=== PATIENT | female | born 1985 | race African-American/Black ===

== ENCOUNTER 2018-10-25 16:17 | Emergency (ER) | payer MEDICAID, OTHER ==
[~2018-10-25] VITALS: Ht 157.5 cm; Wt 49.9 kg
--- NOTE | 2018-10-25 16:20 | NUR ---
Pt arrival to ED 5 ambulatory from car. Pt reporting "Feeling funny in head, last night arms and legs just tingled also." Pt reports injuring occured with falling backwards onto concrete and "bouncing up on concrete then falling back again." Pt is vague and slow in giving history, pt reports she didn't feel like coming in last night. Pt reports as day goes on, not feeling improved.
--- OUTSIDE RECORDS SUMMARY | 2018-10-25 16:23 | XMS REPORT | Continuity of Care Document ---
Author Organization Unknown Address Unknown Phone Unavailable Allergies There is no data. Medications There is no data. Problems There is no data. Procedures There is no data. Results There is no data. Encounters ACCT No. Visit Date/Time Discharge Status Pt. Type Provider Facility Loc./Unit Complaint [id number] 09/13/2018 14:00:00 09/13/2018 23:59:59 CLS Outpatient MARK CHRISTENSEN APRN [facility]
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
--- NOTE | 2018-10-25 17:02 | Diagnostic Imaging Report ---
PROCEDURE: CT head and CT cervical spine without contrast. TECHNIQUE: Multiple contiguous axial images were obtained through the brain and cervical spine without the use of intravenous contrast. Sagittal and coronal reformations through the cervical spine were then performed. Auto Exposure Controls were utilized during the CT exam to meet ALARA standards for radiation dose reduction. INDICATION: Fall. FINDINGS: No comparison available. CT head: The del castillo-white matter differentiation is normal. There is no intracranial hemorrhage. No intra or extra-axial fluid collections. Ventricles are normal in size. There is a cavum septum pellucidum. Basilar cisterns are patent. Orbits are normal. There are no suspicious osseous lesions or fractures. Paranasal sinuses are normal. Cervical spine CT: The alignment of the cervical spine is normal. Craniocervical junction is normal. Facet joints are normal. Vertebral body heights are normal. No fracture is seen. There is some motion artifact at the cervicothoracic junction. No soft tissue abnormality is seen. Superior thorax appears normal. IMPRESSION: 1. No acute intracranial abnormality. 2. No fracture of the cervical spine. Dictated by: Dictated on workstation # [id number]
[2018-10-25] MEDS ORDERED: KETOROLAC 30 MG/ML VIAL ONE (17:08)
[2018-10-25] MEDS ORDERED: KETOROLAC 30 MG/ML VIAL IM ONE (17:15)
[2018-10-25] MEDS ORDERED: NAPR-1071 PO (17:16)
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
--- NOTE | 2018-10-25 17:24 | NUR ---
Pt given IM Toradol 30 mg L Ventrogluteal after nurse having just been told to give it in right side. Pt continues to repeat this same info to RN about nature of her injury. Dr Wise notified. Dr Wise states the patient can and should report to the PD and they can speak with her outside of ER setting as he has prepared her discharge already.
[2018-10-25 17:30] VITALS: BP 115/85
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
== END 2018-10-25 17:30 | disposition home or self-care (01) ==
LOC: ER FS 16:19
DX: S06.0X0A Concussion without loss of consciousness, initial encounter (principal); S13.9XXA Sprain of joints and ligaments of unspecified parts of neck, initial encounter; W18.39XA Other fall on same level, initial encounter; W22.8XXA Striking against or struck by other objects, initial encounter
CPT/HCPCS: 70450; 72125

== ENCOUNTER 2018-11-04 15:37 | Emergency (ER) | payer SELFPAY ==
[~2018-11-04] VITALS: Ht 157.5 cm; Wt 49.9 kg
[~2018-11-04 15:37] MED LIST: NAPR-1071 PO
[2018-11-04] MEDS ORDERED: KETOROLAC 60 MG/2 ML VIAL IM STA (18:06)
[2018-11-04] MEDS ORDERED: methylPREDNISolone 80 MG/ML (DEPO MEDROL) VIAL IM STA (18:06)
[2018-11-04] MEDS ORDERED: diphenhydrAMINE 50 MG/ML INJ (BENADRYL) IM STA (18:06)
[2018-11-04] MEDS ORDERED: BACL10TA PO (18:10)
--- NOTE | 2018-11-04 18:11 | ED Neck-Back Pain/Injury ---
General Chief Complaint: Head/Cervical Problems Stated Complaint: HEAD INJ ISSUES Nursing Triage Note: Patient c/o neck pain shooting into her shoulders. Patient states she doesn't know when it began but it has been happening all day long. She reports that she was recently seen in the ED for a head injury and has had problems since then. Nursing Sepsis Screen: No Definite Risk Source of Information: Patient History of Present Illness Date Seen by Provider: Nov 04, 2018 Time Seen by Provider: 17:48 Initial Comments 33-year-old female presenting to the emergency department with complaints of continued headache and neck pain. She had been evaluated on October 25 for similar symptoms. She had CT scan of her head and cervical spine at that time that were negative for any acute fracture or intracranial process. She was referred to the clinic and has followed up with JESSICA Nunez. She was to go see Caridad today because of increased neck and shoulder pain causing worsening headache and dizziness. However pain was not in the office and will return until Thursday. Due to this she came to the emergency department due to his increased neck and shoulder pain causing severe headaches and dizziness. She is out of her cyclobenzaprine or Flexeril and felt like the muscle relaxer was not helping anyway. She continues to take naproxen but feels that it may not be helping her either. She was concerned about sharp stabbing pains in her upper neck and shoulders. She has no numbness or tingling in her arms or legs. She denies any vision changes. She does get dizzy at times. She feels like she is having difficulty trying to concentrate. Allergies and Home Medications Allergies Coded Allergies: No Known Drug Allergies (Unverified , 10/25/18) Home Medications Baclofen 10 Mg Tablet, 10 MG PO TID PRN for MUSCLE SPASMS Prescribed by: ASHLIE GAONA on 11/04/181809 Naproxen 500 Mg Tablet, 500 MG PO BID Prescribed by: CARMELINA MATTHEWS on 10/25/18 1716 Patient Home Medication List Home Medication List Reviewed: Yes Review of Systems Constitutional: No chills; dizziness; No fever; malaise EENTM: No ear discharge, No hearing loss, No ear pain, No blurred vision, No eye pain, No vision loss, No epistaxis, No nose congestion Respiratory: no symptoms reported Cardiovascular: no symptoms reported Gastrointestinal: no symptoms reported Genitourinary: no symptoms reported Musculoskeletal: see HPI Skin: no symptoms reported Psychiatric/Neurological: Headache; Denies Numbness, Denies Paresthesia, Denies Tingling Past [place]bp[place]-Vltqra Hx Past Med/Social Hx: Reviewed Nursing Past Med/Soc Hx Patient Social History Alcohol Use: Denies Use Recreational Drug Use: No Smoking Status: Current Everyday Smoker Type Used: Cigarettes 2nd Hand Smoke Exposure: Yes Recent Foreign Travel: No Contact w/Someone Who Travel: No Recent Infectious Disease Expo: No Recent Hopitalizations: No Physical Abuse: No Sexual Abuse: No Mistreated: No Fear: No Immunizations Up To Date Tetanus Booster (TDap): Less than 5yrs Seasonal Allergies Seasonal Allergies: No Past Medical History Surgeries: No Respiratory: No Cardiac: No Neurological: No : No Sexually Transmitted Disease: Yes (Chlamydia) Genitourinary: No Gastrointestinal: No Musculoskeletal: No Endocrine: No HEENT: No Cancer: No Psychosocial: No Integumentary: No Blood Disorders: No Physical Exam Vital Signs Vital Signs - First Documented 11/04/18 16:30 Temp 98.9 Pulse 110 Resp 16 B/P (MAP) 113/59 (77) Pulse Ox 100 O2 Delivery Room Air Capillary Refill : Less Than 3 Seconds Height, Weight, BMI Height: 5'2.00" Weight: 110lbs. oz. 49.037545yq; BMI Method:Stated General Appearance: WD/WN, Anxious, Moderate Distress HEENT: PERRL/EOMI, TMs Normal, Normal ENT Inspection, Pharynx Normal Neck: Limited Range of Motion (due to pain and muscle spasms in her neck), Tender Lateral; No Tender Midline Cardiovascular: Regular Rate, Rhythm, Normal Peripheral Pulses Extremity: Normal Capillary Refill, Normal Inspection, Normal Range of Motion, Non Tender Neurologic/Psychiatric: Alert, Oriented x3, No Motor/Sensory Deficits Skin: Normal Color, Warm/Dry Progress/Results/Core Measures Results/Orders My Orders Orders - ASHLIE GAONA MD Ketorolac Injection (Toradol Injection) (11/04/18 18:06) Diphenhydramine Injection (Benadryl Inje (11/04/18 18:06) Methylprednisolone Acetate Inj (Depo-Med (11/04/18 18:06) Vital Signs/I&O 11/04/18 11/04/18 16:30 18:30 Temp 98.9 98.9 Pulse 110 110 Resp 16 16 B/P (MAP) 113/59 (77) 113/59 (77) Pulse Ox 100 100 O2 Delivery Room Air Room Air Blood Pressure Mean: 77 Progress Progress Note : Progress Note Apologize to the patient for extended wait. Due to multiple patients in the [facility] department and several ambulance patients. Will give her additional anti- inflammatory effect by dosing her with Depo-Medrol. Will switch her to baclofen for a different muscle relaxer. We'll also give her a dose of Toradol for acute pain. For helping with her headache we will also give a dose of Benadryl here. Discharged to home and have her start taking baclofen tonight. Counseled to follow up with Caridad Nunez in the clinic and that she might be an MRI or physical therapy to help with her neck and back pain as well as her postconcussion syndrome Departure Impression Primary Impression: Post-concussion headache Additional Impressions: Tension headache Cervical paraspinal muscle spasm Disposition: 01 HOME, SELF-CARE Condition: Stable Departure-Patient Inst. Decision time for Depature: 18:08 Referrals: NO,LOCAL PHYSICIAN (PCP) Primary Care Physician Patient Instructions: Muscle Spasms (DC), Neck Sprain (DC), Postconcussion Syn drome (DC), Tension Headache (DC) Add. Discharge Instructions: Stay well hydrated and get plenty of rest Alternate ice and heat to your neck and shoulders to help with muscle spasms and inflammation. You may also need an MRI if your symptoms persist or at least some physical therapy. Check with Caridad Nunez in clinic for continued symptoms. All discharge instructions reviewed with patient and/or family. Voiced understanding. Scripts Baclofen (Baclofen) 10 Mg Tablet 10 MG PO TID PRN for MUSCLE SPASMS for 10 Days, #30 TAB 0 Refills Prov: ASHLIE GAONA MD 11/04/18 ASHLIE GAONA MD Nov 04, 2018 18:11
[2018-11-04 18:30] VITALS: BP 113/59
--- OUTSIDE RECORDS SUMMARY | 2018-11-05 00:45 | XMS REPORT | Continuity of Care Document ---
Author Organization Unknown Address Unknown Phone Unavailable Allergies There is no data. Medications There is no data. Problems There is no data. Procedures There is no data. Results There is no data. Encounters ACCT No. Visit Date/Time Discharge Status Pt. Type Provider Facility Loc./Unit Complaint [id number] 10/26/2018 11:40:00 10/26/2018 23:59:59 CLS Outpatient MARK CHRISTENSEN APRN [facility]
== END 2018-11-04 18:30 | disposition home or self-care (01) ==
LOC: EDUNIT# 15:37 → ER FS 15:38
DX: G44.309 Post-traumatic headache, unspecified, not intractable (principal); G44.209 Tension-type headache, unspecified, not intractable; M62.838 Other muscle spasm; F17.210 Nicotine dependence, cigarettes, uncomplicated
CPT/HCPCS: 99284

== ENCOUNTER 2019-03-16 19:32 | Emergency (ER) | payer MEDICAID, OTHER ==
[~2019-03-16] VITALS: Ht 154.9 cm; Wt 49.2 kg
[~2019-03-16 19:32] MED LIST changes: +BACL10TA PO
[2019-03-16 20:13] LABS: CLARITY,URINE CLEAR; COLOR,URINE DARK YELLOW; GLUCOSE, URINE (UA) NEGATIVE (NEGATIVE); KETONES,URINE NEGATIVE (NEGATIVE); NITRITE,URINE NEGATIVE (NEGATIVE); PH,URINE 5.5 (5-9); PROTEIN,URINE TRACE (NEGATIVE)
[2019-03-16 20:14] LABS: BACTERIA,URINE TRACE /HPF; BILIRUBIN,URINE 1+ (NEGATIVE); HCG,QUALITATIVE URINE NEGATIVE (NEGATIVE); LEUKOCYTE ESTERASE ,URINE NEGATIVE (NEGATIVE); SQUAMOUS EPITHELIAL CELL,UR 0-2 /HPF
[2019-03-16] MEDS ORDERED: ONDANSETRON 4 MG (ZOFRAN) ORAL DISSOLVE TAB PO STA (20:20)
[2019-03-16] MEDS ORDERED: ONDA4TAB11 PO (20:24)
--- NOTE | 2019-03-16 20:24 | ED GI ---
General Chief Complaint: Abdominal/GI Problems Stated Complaint: NAUSEA/VOMITTING Nursing Triage Note: pt states intermittent n/v all week, pt states she needs a drs note because she did not go to work today Sepsis Screen: No Definite Risk Source of Information: Patient History of Present Illness Date Seen by Provider: Mar 16, 2019 Time Seen by Provider: 20:09 Initial Comments 34-year-old female presenting with complaints of nausea and vomiting over the last week. She woke up last night and had more nausea and vomiting. She states that the whole family has had the same symptoms. She had seen her doctor last week and gotten some dissolving Zofran tablets which were helping but she ran out. She missed work today because of vomiting overnight. She plans to go to work in the morning but needs a note to be released so that she can go to work at 4 AM. She denies any dizziness or lightheadedness tonight. She has had no vomiting since early this morning. She is tolerating oral intake currently. She denies any fever or chills this evening. She has no pain with urination. Allergies and Home Medications Allergies Coded Allergies: No Known Drug Allergies (Unverified , 10/25/18) Home Medications Baclofen 10 Mg Tablet, 10 MG PO TID PRN for MUSCLE SPASMS Prescribed by: ASHLIE GAONA on 11/04/181809 Naproxen 500 Mg Tablet, 500 MG PO BID Prescribed by: CARMELINA MATTHEWS on 10/25/18 171 Ondansetron 4 Mg Tab.rapdis, 4 MG PO Q6H PRN for NAUSEA/VOMITING Prescribed by: ASHLIE GAONA on 03/16/192023 Patient Home Medication List Home Medication List Reviewed: Yes Review of Systems Review of Systems Constitutional: chills, fever EENTM: No Symptoms Reported Respiratory: No Symptoms Reported Cardiovascular: No Symptoms Reported Gastrointestinal: Nausea, Vomiting Genitourinary: Denies Frequency Musculoskeletal: no symptoms reported Skin: no symptoms reported Psychiatric/Neurological: Denies Headache, Denies Numbness, Denies Paresthesia Past Osbtzgu-Jqqbmn-[place] Hx Past Med/Social Hx: Reviewed Nursing Past Med/Soc Hx Patient Social History Alcohol Use: Denies Use Recreational Drug Use: No Type Used: Cigarettes 2nd Hand Smoke Exposure: Yes Recent Foreign Travel: No Contact w/Someone Who Travel: No Recent Infectious Disease Expo: No Recent Hopitalizations: No Physical Abuse: No Sexual Abuse: No Mistreated: No Fear: No Immunizations Up To Date Tetanus Booster (TDap): Less than 5yrs Seasonal Allergies Seasonal Allergies: No Past Medical History Surgeries: No Respiratory: No Cardiac: No Neurological: No Sexually Transmitted Disease: Yes (Chlamydia) Genitourinary: No Gastrointestinal: No Musculoskeletal: No Endocrine: No HEENT: No Cancer: No Psychosocial: No Integumentary: No Blood Disorders: No Physical Exam Vital Signs Vital Signs - First Documented 03/16/19 20:00 Temp 36.3 Pulse 118 Resp 18 B/P (MAP) 99/61 (74) Pulse Ox 99 O2 Delivery Room Air Capillary Refill : Less Than 3 Seconds Height/Weight/BMI Height: 5'2.00" Weight: 110lbs. oz. 49.889320rk; 20.00 BMI Method:Stated General Appearance: WD/WN, no apparent distress HEENT: PERRL/EOMI, TMs normal, pharynx normal Neck: non-tender, full range of motion, supple, normal inspection Respiratory: chest non-tender, lungs clear, normal breath sounds Cardiovascular: normal peripheral pulses, regular rate, rhythm Gastrointestinal: normal bowel sounds, non tender, soft, no organomegaly, no pulsatile mass Extremities: normal range of motion, non-tender, normal capillary refill Neurologic/Psychiatric: barn hand II-XII nml as tested, alert, oriented x 3 Skin: normal color, warm/dry Progress/Results/Core Measures Results/Orders Lab Results Laboratory Tests Test 03/16/19 19:54 Range/Units Urine Color DARK YELLOW Urine Clarity CLEAR Urine pH 5.5 5-9 Urine Specific [place] >=1.030 1.016-1.022 Urine Protein TRACE H NEGATIVE Urine Glucose (UA) NEGATIVE NEGATIVE Urine Ketones NEGATIVE NEGATIVE Urine Nitrite NEGATIVE NEGATIVE Urine Bilirubin 1+ H NEGATIVE Urine Urobilinogen 0.2 < = 1.0 MG/DL Urine Leukocyte Esterase NEGATIVE NEGATIVE Urine RBC (Auto) NEGATIVE NEGATIVE Urine RBC NONE /HPF Urine WBC 2-5 /HPF Urine Squamous Epithelial Cells 0-2 /HPF Urine Crystals NONE /LPF Urine Bacteria TRACE /HPF Urine Casts NONE /LPF Urine Mucus MODERATE H /LPF Urine Culture Indicated NO Urine Test NEGATIVE NEGATIVE My Orders Orders - ASHLIE GAONA MD Ua Culture If Indicated (03/16/19 19:42) Hcg,Qualitative Urine (03/16/19 19:42) Ondansetron Oral Dissolve Tab (Zofran (03/16/19 20:20) Vital Signs/I&O 03/16/19 03/16/19 20:00 20:35 Temp 36.3 36.3 Pulse 118 118 Resp 18 18 B/P (MAP) 99/61 (74) 99/61 (74) Pulse Ox 99 99 O2 Delivery Room Air Blood Pressure Mean: 74 Progress Progress Note : Progress Note Patient states that she just recently saw her primary provider last week in the clinic about these symptoms. She has several family members have been sick as well. She denies any pain with urination. She had missed going to work today because of being sick and needed to know so she could go up this morning. She also is out of nausea medication. Departure Impression Primary Impression: Viral gastroenteritis Disposition: HOME, SELF-CARE Condition: Stable Departure-Patient Inst. Decision time for Depature: 20:22 Referrals: NO,LOCAL PHYSICIAN (PCP) Primary Care Physician [facility] Patient Instructions: Dehydration, Adult (DC), Viral Gastroenteritis, Adult (DC) Add. Discharge Instructions: Keep sipping on fluids and try to stay well hydrated. Check with clinic for continued problems/concerns All discharge instructions reviewed with patient and/or family. Voiced unde rstanding. Scripts Ondansetron (Ondansetron Odt) 4 Mg Tab.rapdis 4 MG PO Q6H PRN for NAUSEA/VOMITING for 3 Days, #12 TAB 0 Refills Prov: ASHLIE GAONA MD 03/16/19 Work/School Note: Work Release Form Date Seen in the Emergency Department: Mar 16, 2019 Return to Work: Mar 17, 2019 Restrictions: No Restrictions ASHLIE GAONA MD Mar 16, 2019 20:24
[2019-03-16 20:35] VITALS: BP 99/61
== END 2019-03-16 20:35 | disposition home or self-care (01) ==
LOC: EDUNIT# 19:32 → ER FS 19:34
DX: A08.4 Viral intestinal infection, unspecified (principal); Z77.22 Contact with and (suspected) exposure to environmental tobacco smoke (acute) (chronic)
CPT/HCPCS: 81000; 84703; 99283

== ENCOUNTER 2019-03-31 17:41 | Emergency (ER) | payer MEDICAID ==
[~2019-03-31] VITALS: Ht 154 cm; Wt 50.0 kg
[~2019-03-31 17:41] MED LIST changes: +ONDA4TAB11 PO
--- NOTE | 2019-03-31 18:02 | ED General ---
General Chief Complaint: General Problems/Pain Stated Complaint: ABD PAIN Nursing Triage Note: PT STATES SHE WAS ACHY TODAY AND NEEDS A DOCTORS NOTE FOR WORK THAT SHE MISSED. 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 (TICO FRIAS MD) Allergies and Home Medications Allergies Coded Allergies: No Known Drug Allergies (Unverified , 10/25/18) Home Medications Baclofen 10 Mg Tablet, 10 MG PO TID PRN for MUSCLE SPASMS Prescribed by: ASHLIE GAONA on 11/04/181809 Naproxen 500 Mg Tablet, 500 MG PO BID Prescribed by: CARMELINA MATTHEWS on 10/25/18 171 Ondansetron 4 Mg Tab.rapdis, 4 MG PO Q6H PRN for NAUSEA/VOMITING Prescribed by: ASHLIE GAONA on 03/16/192023 Patient Home Medication List Home Medication List Reviewed: Yes (TICO FRIAS MD) Review of Systems Review of Systems Constitutional: No fever; other (achy all over) EENTM: other (+ CHOI); No nose congestion, No throat pain Respiratory: no symptoms reported; No cough, No short of breath Cardiovascular: no symptoms reported; No syncope Gastrointestinal: No abdominal pain, No diarrhea, No nausea, No vomiting Genitourinary: no symptoms reported (TICO FRIAS MD) Past Kjvfdjd-Kaegsg-Udwbfo Hx Patient Social History Alcohol Use: Denies Use Recreational Drug Use: No Type Used: Cigarettes 2nd Hand Smoke Exposure: Yes Recent Foreign Travel: No Contact w/Someone Who Travel: No Recent Infectious Disease Expo: No Recent Hopitalizations: No Physical Abuse: No Sexual Abuse: No Mistreated: No Fear: No (TICO FRIAS MD) Immunizations Up To Date Tetanus Booster (TDap): Less than 5yrs (TICO FRIAS MD) Seasonal Allergies Seasonal Allergies: No (TICO FRIAS MD) Past Medical History Surgeries: No Respiratory: No Cardiac: No Neurological: No Sexually Transmitted Disease: Yes (Chlamydia) Genitourinary: No Gastrointestinal: No Musculoskeletal: No Endocrine: No HEENT: No Cancer: No Psychosocial: No Integumentary: No Blood Disorders: No (TICO FRIAS MD) Physical Exam Vital Signs Vital Signs - First Documented 03/31/19 17:50 Temp 36.3 Pulse 82 Resp 18 B/P (MAP) 104/62 (76) Pulse Ox 99 O2 Delivery Room Air (LUCÍA QUILES MD) Vital Signs Capillary Refill : Less Than 3 Seconds (TICO FRIAS MD) Height, Weight, BMI Height: 5'2.00" Weight: 110lbs. oz. 49.686960sp; 21.00 BMI Method:Stated General Appearance: No Apparent Distress Eyes: Bilateral Eye PERRL, Bilateral Eye EOMI HEENT: TMs Normal, Other (oropharynx does appear mildly inflammed) Neck: Supple Respiratory: Lungs Clear, Normal Breath Sounds Cardiovascular: Regular Rate, Rhythm Gastrointestinal: Normal Bowel Sounds, Non Tender, Soft (TICO FRIAS MD) Progress/Results/Core Measures Suspected Sepsis Recent Fever Within 48 Hours: No Infection Criteria Present: None New/Unexplained Altered Menta: No Sepsis Screen: No Definite Risk SIRS Temperature: Pulse: 82 Respiratory Rate: 18 Blood Pressure 104 /62 Mean: 76 (TICO FRIAS MD) Results/Orders Lab Results Laboratory Tests Test 03/31/19 17:56 Range/Units Group A Streptococcus Screen NEGATIVE NEGATIVE (LUCÍA QUILES MD) Vital Signs/I&O 03/31/19 17:50 Temp 36.3 Pulse 82 Resp 18 B/P (MAP) 104/62 (76) Pulse Ox 99 O2 Delivery Room Air (LUCÍA QUILES MD) Vital Signs/I&O Capillary Refill : Less Than 3 Seconds (TICO FRIAS MD) Blood Pressure Mean: 76 Progress Note : Progress Note strep screen - (TICO FRIAS MD) Transfer of Care Transfer of Care Time: 18:02 Care transferred to: Dr. Quiles to review strep screen result and dispo pt (TICO FRIAS MD) Departure Communication (Admissions) No complaints to me. So she needs a note for work she missed today. Did not feel well today. (LUCÍA QUILES MD) Impression Primary Impression: Viral illness Disposition: 01 HOME, SELF-CARE Condition: Improved Departure-Patient Inst. Decision time for Depature: 18:14 (LUCÍA QUILES MD) Referrals: NO,LOCAL PHYSICIAN (PCP/Family) Primary Care Physician Patient Instructions: Viral Syndrome (DC) Add. Discharge Instructions: Please excuse Lay Wilson from work on March 31. She was ill. She can return to work on April 01. All discharge instructions reviewed with patient and/or family. Voiced understanding. TICO FRIAS MD Mar 31, 2019 18:02 LUCÍA QUILES MD Mar 31, 2019 18:15
[2019-03-31 18:16] VITALS: BP 104/62
== END 2019-03-31 18:18 | disposition home or self-care (01) ==
LOC: EDUNIT# 17:41 → ER FS 17:43
DX: B34.9 Viral infection, unspecified (principal); Z77.22 Contact with and (suspected) exposure to environmental tobacco smoke (acute) (chronic)
CPT/HCPCS: 87430; 99284

== ENCOUNTER 2019-04-27 16:45 | Emergency (ER) | payer MEDICAID ==
[~2019-04-27] VITALS: Ht 154.9 cm; Wt 49.4 kg
--- NOTE | 2019-04-27 16:51 | ED General ---
General Stated Complaint: ABD PAIN History of Present Illness Date Seen by Provider: Apr 27, 2019 Time Seen by Provider: 16:51 Initial Comments Patient presenting to emergency department for evaluation of abdominal pain. I went in to ask more questions about her abdominal pain she says she is just having a stomachache and wants a note for work. She didn't want to answer anymore questions about her pain or have any further testing done. She says she is simply here for a work note. It appears that she has done this multiple times in the past as well. Allergies and Home Medications Allergies Coded Allergies: No Known Drug Allergies (Unverified , 10/25/18) Home Medications Baclofen 10 Mg Tablet, 10 MG PO TID PRN for MUSCLE SPASMS Prescribed by: ASHLIE GAONA on 11/04/181809 Naproxen 500 Mg Tablet, 500 MG PO BID Prescribed by: CARMELINA MATTHEWS on 10/25/18 171 Ondansetron 4 Mg Tab.rapdis, 4 MG PO Q6H PRN for NAUSEA/VOMITING Prescribed by: ASHLIE GAONA on 03/16/192023 Patient Home Medication List Home Medication List Reviewed: Yes Review of Systems Review of Systems Constitutional: no symptoms reported Gastrointestinal: abdominal pain All Other Systems Reviewed Negative Unless Noted: Yes Past Nyvjrxb-Mbqeux-Isvdla Hx Patient Social History Type Used: Cigarettes 2nd Hand Smoke Exposure: Yes Recent Foreign Travel: No Contact w/Someone Who Travel: No Recent Hopitalizations: No Immunizations Up To Date Tetanus Booster (TDap): Less than 5yrs Seasonal Allergies Seasonal Allergies: No Past Medical History Surgeries: No Respiratory: No Cardiac: No Neurological: No Sexually Transmitted Disease: Yes (Chlamydia) Genitourinary: No Gastrointestinal: No Musculoskeletal: No Endocrine: No HEENT: No Cancer: No Psychosocial: No Integumentary: No Blood Disorders: No Physical Exam Vital Signs Capillary Refill : Height, Weight, BMI Height: 5'2.00" Weight: 110lbs. oz. 49.557740gt; 21.00 BMI Method:Stated General Appearance: No Apparent Distress Respiratory: No Respiratory Distress Cardiovascular: Regular Rate, Rhythm Gastrointestinal: Non Tender, Soft Skin: Warm/Dry Progress/Results/Core Measures Suspected Sepsis SIRS Temperature: Pulse: Respiratory Rate: Blood Pressure / Mean: Results/Orders Vital Signs/I&O Capillary Refill : Progress Note : Progress Note Patient appears well with normal vital signs and has a benign abdominal exam and she does not want any testing done rather she wants to get a work note and go home. Patient discharged in stable condition and told she can return with any concerns. Departure Impression Primary Impression: Abdominal pain Qualified Codes: R10.84 - Generalized abdominal pain Disposition: HOME, SELF-CARE Condition: Stable Departure-Patient Inst. Referrals: NO,LOCAL PHYSICIAN (PCP/Family) Primary Care Physician JOYCE SALINAS DO Apr 27, 2019 16:51
[2019-04-27 17:10] VITALS: BP 104/53
--- NOTE | 2019-04-27 17:10 | NUR ---
Patient discharged after medical screening evaluation per Dr Samaniego and pt requesting to just receive a work note as abd pain subsided.
== END 2019-04-27 17:10 | disposition home or self-care (01) ==
LOC: EDUNIT# 16:45 → ER FS 16:46
DX: R10.9 Unspecified abdominal pain (principal); Z77.22 Contact with and (suspected) exposure to environmental tobacco smoke (acute) (chronic)
CPT/HCPCS: 99281

== ENCOUNTER 2019-05-04 13:56 | Emergency (ER) | payer MEDICAID ==
[~2019-05-04] VITALS: Ht 154 cm; Wt 50.0 kg
--- NOTE | 2019-05-04 14:04 | ED General ---
General Stated Complaint: NAUSEA History of Present Illness Date Seen by Provider: May 04, 2019 Time Seen by Provider: 14:04 Initial Comments Patient presenting to emergency department stating that she does not feel well today and missed work and wants a note for work. I asked her what her symptoms were and she says she just does not feel well and feels nauseated. I told her that we should do tests including urinalysis and blood work and then see if she needs further testing such as a scan and she said she did not want this done and she does not think it is a serious she says she is simply requesting a work note and wants to go. She has done this once in February twice in March and now is doing and again requesting a work note. I told her that we cannot continue simply giving her work notes every time she misses work and that we either need to evaluate her for her complaints or I will discharge her with no work note. She says she is wants to be released and does not want any further workup and I am not going to provide her a work note. Allergies and Home Medications Allergies Coded Allergies: No Known Drug Allergies (Unverified , 10/25/18) Home Medications Baclofen 10 Mg Tablet, 10 MG PO TID PRN for MUSCLE SPASMS Prescribed by: ASHLIE GAONA on 11/04/181809 Naproxen 500 Mg Tablet, 500 MG PO BID Prescribed by: CARMELINA MATTHEWS on 10/25/18 171 Ondansetron 4 Mg Tab.rapdis, 4 MG PO Q6H PRN for NAUSEA/VOMITING Prescribed by: ASHLIE GAONA on 03/16/192023 Patient Home Medication List Home Medication List Reviewed: Yes Review of Systems Review of Systems Constitutional: no symptoms reported Gastrointestinal: nausea All Other Systems Reviewed Negative Unless Noted: Yes Past Whgqohk-Ilyzib-Lufuhd Hx Patient Social History Type Used: Cigarettes 2nd Hand Smoke Exposure: Yes Recent Foreign Travel: No Recent Hopitalizations: No Immunizations Up To Date Tetanus Booster (TDap): Less than 5yrs Seasonal Allergies Seasonal Allergies: No Past Medical History Surgeries: No Respiratory: No Cardiac: No Neurological: No Sexually Transmitted Disease: Yes (Chlamydia) Genitourinary: No Gastrointestinal: No Musculoskeletal: No Endocrine: No HEENT: No Cancer: No Psychosocial: No Integumentary: No Blood Disorders: No Physical Exam Vital Signs Capillary Refill : Height, Weight, BMI Height: 5'2.00" Weight: 110lbs. oz. 49.509176op; 20.00 BMI Method:Stated General Appearance: No Apparent Distress, WD/WN Respiratory: No Respiratory Distress Cardiovascular: Regular Rate, Rhythm Neurologic/Psychiatric: Alert, Oriented x3 Skin: Normal Color Progress/Results/Core Measures Suspected Sepsis SIRS Temperature: Pulse: Respiratory Rate: Blood Pressure / Mean: Results/Orders Vital Signs/I&O Capillary Refill : Progress Note : Progress Note Patient discharged in stable condition and told to return if she wants to be evaluated for her complaints. Departure Impression Primary Impression: Nausea alone Disposition: 01 HOME, SELF-CARE Condition: Stable Departure-Patient Inst. Referrals: NO,LOCAL PHYSICIAN (PCP/Family) Primary Care Physician JOYCE SALINAS DO May 04, 2019 14:04
[2019-05-04 14:10] VITALS: BP 128/59
== END 2019-05-04 14:10 | disposition home or self-care (01) ==
LOC: EDUNIT# 13:56 → ER FS 13:57
DX: R11.0 Nausea (principal); Z77.22 Contact with and (suspected) exposure to environmental tobacco smoke (acute) (chronic)
CPT/HCPCS: 99281